=== PATIENT | male | born 1955 | race African-American/Black ===

== ENCOUNTER 2019-12-22 10:32 | Outpatient (CLI) | payer OTHER ==
--- NOTE | 2019-12-22 12:17 | MRI ---
MRI OF THE LUMBAR SPINE WITHOUT CONTRAST: INDICATION: History of left leg radiculopathy of the lumbar spine. COMPARISON: Prior MRI of the lumbar spine without contrast dated 11/24/2016 from [facility]. FINDINGS: There are bilateral renal cysts. Bone marrow signal intensity appears within normal limits. No acute fracture is evident. At L5-S1, there is a broad-based disk bulge with facet joint degenerative change. There is a small s uperimposed central disk protrusion. This stable to the prior examination. There is mild ventral ef facement of the subarachnoid space. Loss of disk space height in addition to degenerative change at this level induces mild bilateral neural foraminal narrowing which is stable. At L4-5, there is a broad-based bulge with facet hypertrophy inducing mild to moderate bilateral neur al foraminal narrowing which is stable. At L3-4, there is a broad-based bulge with facet hypertrophy inducing mild to moderate bilateral neur al foraminal narrowing which is stable. At L2-3, there is a broad-based bulge with facet hypertrophy but no appreciable central canal narrowi ng. There is mild bilateral neural foraminal narrowing which is stable. At L1-L2, there is no appreciable central canal or neural foraminal narrowing. At T12-L1, there is no appreciable central canal or neural foraminal narrowing. IMPRESSION: Stable multilevel spondylosis with multilevel neural foraminal narrowing as detailed above. POS: [facility]
== END 2019-12-22 10:33 | disposition home or self-care (01) ==
LOC: TBSIIMAG 10:32
PROVIDERS: ATTEND Neurological Surgery
DX: M47.26 Other spondylosis with radiculopathy, lumbar region (principal); M48.061 Spinal stenosis, lumbar region without neurogenic claudication
CPT/HCPCS: 72148

== ENCOUNTER 2020-06-07 08:06 | Outpatient (CLI) | payer OTHER ==
[2020-06-07 18:41] LABS: Bilirubin Neg (Negative); Blood, Urine Negative (Negative); Clarity Clear (Clear); Glucose, Urine (Dipstick) Normal (Negative); Ketone, Urine Negative (Negative); Leukocyte Negative (Negative); Nitrite Negative (Negative); Protein, Urine (Dipstick) Negative (Neg-Trace)
[2020-06-07 18:55] LABS: Anion Gap 13 mmol/L (10-20); BUN (Urea Nitrogen) 15 mg/dL (8.4-25.7); Calc. Creatinine Clearance 0 mL/min (70-130); Calcium 9.1 mg/dL (7.8-10.44); Carbon Dioxide 26 mmol/L (23-31); Chloride 106 mmol/L (98-107); Glucose 124 mg/dL (80-115); Potassium 3.8 mmol/L (3.5-5.1); Sodium 141 mmol/L (136-145)
[2020-06-07 18:59] LABS: Bacteria/HPF Rare-Few HPF (None Seen); RBC/HPF 0-3 HPF (0-3); Squamous Epithelial 0-3 HPF (0-3); WBC/HPF 0-3 HPF (0-3)
[2020-06-07 19:08] LABS: Hemoglobin 14.6 g/dL (14.0-18.0); Mean Corpuscular HGB CONC 33.2 G/DL (32.0-36.0); Mean Corpuscular Hemoglobin 30.5 PG (27.0-33.0); Mean Corpuscular Volume 91.9 fl (80.0-100.0); Mean Platelet Volume 13.9 fl (7.4-10.4); Red Blood Cell (RBC) Count 4.79 10x6/uL (4.40-5.80); White Blood Cell (WBC) Count 6.2 10x3/uL (4.5-11.0)
[2020-06-07 19:09] LABS: Platelet Count 154 10x3/uL (130-400)
[2020-06-08 02:05] LABS: SARS-CoV-2 MS2 Positive; SARS-CoV-2 N Gene Negative; SARS-CoV-2 S Gene Negative; SARS-CoV-2 by NAA Not Detected (NotDetected); SARS-CoV-2 orf1ab Negative
== END 2020-06-07 08:07 | disposition home or self-care (01) ==
LOC: LABBT 08:06
PROVIDERS: ATTEND Urology
DX: Z01.818 Encounter for other preprocedural examination (principal); Z20.828 Contact with and (suspected) exposure to other viral communicable diseases
CPT/HCPCS: 80048; 81001; 85027; 87086; 87635; 93005; 93010; U0003

== ENCOUNTER 2020-06-12 05:50 | Observation (INO) | payer OTHER ==
[2020-06-11 13:17] VITALS: BMI 34.9
[2020-06-12] MEDS ORDERED: Levofloxacin 500 mg/D5W 100 ml Premix Bag ONE (06:23)
[2020-06-12 06:36] LABS: PTT 28.6 sec (22.9-36.1); Prothrombin Time 13.3 sec (12.0-14.7)
[2020-06-12] MEDS ORDERED: Fentanyl 100 MCG/2 ML VIAL ONE ×2 (07:06→07:22)
--- NOTE | 2020-06-12 08:46 | OP ---
DATE OF PROCEDURE: 06/12/2020 PREOPERATIVE DIAGNOSIS: Enlarged prostate with lower urinary tract symptoms. POSTOPERATIVE DIAGNOSIS: Enlarged prostate with lower urinary tract symptoms. PROCEDURES PERFORMED: Transurethral resection of prostate. ANESTHESIA: General. COMPLICATIONS: None. ESTIMATED BLOOD LOSS: Minimal. SPECIMENS: Prostate chips. DESCRIPTION OF PROCEDURE: After informed consent, the patient was taken to the operating room, transferred to the table on his own power. Anesthesia was established. A time-out was performed showing the correct patient, site, and procedure. Preoperative antibiotics were administered. He was prepped and draped in the lithotomy position. The rigid resectoscope was advanced through the urethra, noting a normal course and caliber of the urethra down to the level of the prostate, noting large coapting lateral lobes and a high bladder neck. The scope was carefully guided into the bladder, noting moderate trabeculation. Both ureters were normal in appearance. The resection loop was used to take down the bladder neck at midline all the way back to the verumontanum. The left lobe was then resected from one o'clock down to midline limiting resection to the level of the verumontanum. The right lobe was then taken down from 11 o'clock down to midline. Finally, anterior obstructing tissue was resected. Meticulous hemostasis was achieved. The [employer] evacuator was used to retrieve all prostate chips. Both ureters were uninvolved with resection. The bladder was then drained and refilled, noting no further prostate chips or active bleeding. The scope was withdrawn and a 22-Spanish 3-way catheter placed with 30 mL instilled in the balloon. This was connected to CBI, which was running clear as we completed the case. He was then awoken from anesthesia, transferred back to his hospital bed and taken to PACU in stable condition, where he will be admitted overnight. Job ID: [id number]
[2020-06-12] MEDS ORDERED: PROPOFOL 200 MG/20 ML VIAL ONE (09:32)
[2020-06-12] MEDS ORDERED: Lidocaine 1% PF 5 ML VIAL ONE (09:32)
[2020-06-12] MEDS ORDERED: Dexamethasone 20 MG/5 ML VIAL ONE (09:32)
[2020-06-12] MEDS ORDERED: Ondansetron PF 4 MG/2 ML Vial ONE (09:32)
[2020-06-12] MEDS ORDERED: Zolpidem Tartrate 5 MG TAB PO PRN (10:03)
[2020-06-12] MEDS ORDERED: Ondansetron PF 4 MG/2 ML Vial IVP PRN (10:03)
[2020-06-12] MEDS ORDERED: diphenhydrAMINE 50 MG/ML VIAL IVP PRN (10:03)
[2020-06-12] MEDS ORDERED: hydrALAZINE 20 MG/ML VIAL SLOW IVP PRN (10:03)
[2020-06-12] MEDS ORDERED: Docusate 100 MG CAP PO SCH (10:30)
[2020-06-12] MEDS ORDERED: Aspirin 81 mg Enteric Coated Tablet PO SCH (10:30)
[2020-06-12] MEDS: Sodium Chloride 0.9% 1,000 ML IV SCH ×2 (11:17→20:41)
[2020-06-12] MEDS: HYDROcodone/Acetaminophen 5/325 mg Tablet PO PRN (11:20)
[2020-06-12] MEDS: Hyoscyamine Sulfate SL 0.125 mg Tablet SL PRN (11:23)
[2020-06-12] MEDS: Docusate 100 MG CAP PO SCH (20:40)
[2020-06-12] MEDS ORDERED: Atorvastatin Calcium 20 MG TAB PO SCH (21:00)
[2020-06-13 04:48] VITALS: BP 129/76; TEMP 97.8
[2020-06-13] MEDS: Sodium Chloride 0.9% 1,000 ML IV SCH (08:36)
[2020-06-13] MEDS: Hyoscyamine Sulfate SL 0.125 mg Tablet SL PRN (08:36)
[2020-06-13] MEDS: Docusate 100 MG CAP PO SCH (08:36)
[2020-06-13] MEDS: HYDROcodone/Acetaminophen 5/325 mg Tablet PO PRN (08:37)
[2020-06-13] MEDS ORDERED: Aspirin 81 mg Enteric Coated Tablet PO SCH (09:00)
[2020-06-13] MEDS ORDERED: FLU VACC QS2020-21(6MOS UP)/PF 60 MCG/0.5 ML SYRINGE IM ONE (09:00)
--- NOTE | 2020-06-13 10:05 | DIS ---
DATE OF ADMISSION: 06/12/2020 DATE OF DISCHARGE: 06/13/2020 DISCHARGE DIAGNOSIS: Lower urinary tract symptoms due to enlarged prostate. HOSPITAL COURSE: The patient underwent an uncomplicated bipolar transurethral resection of the prostate on 06/12. He was maintained with CBI overnight. The following morning, this was turned off and remained clear without CBI. He was deemed stable for discharge home at that point. DISCHARGE MEDICATIONS: Resume home medications. Postop medications include, 1. Bactrim. 2. Tramadol. 3. Oxybutynin. DISCHARGE PLAN: Follow up next Thursday for void trial. DISCHARGE PHYSICAL EXAMINATION: GENERAL: No acute distress. LUNGS: Unlabored breathing. HEART: Regular rate and rhythm. ABDOMEN: Soft, nontender, and nondistended. No CVA tenderness. No suprapubic tenderness. Weiss catheter in good position draining clear urine off CBI. SKIN: Warm and dry. EXTREMITIES: No peripheral edema. Job ID: [id number]
== END 2020-06-13 11:00 | disposition home or self-care (01) ==
LOC: SDC 05:50 → SURG A 07:25 → SDC 10:03 → SURG A 10:03
PROVIDERS: ADMIT Urology; ATTEND Urology
PROC: 0V507ZZ Destruction of Prostate, Via Natural or Artificial Opening (ICD-10-PCS; principal; 2020-06-12)
DX: N40.1 Benign prostatic hyperplasia with lower urinary tract symptoms (principal); Z79.82 Long term (current) use of aspirin; Z79.899 Other long term (current) drug therapy
CPT/HCPCS: 36415; 85610; 85730; 88305; 90471; 90662; 90732; G0008; G0009; G0378; J1100; J1956; J2405; J2704; J3010

== ENCOUNTER 2020-12-18 18:30 | Outpatient (CLI) | payer OTHER | END 2020-12-18 18:31 | disposition home or self-care (01) | LOC: SLEEPLAB 18:30 | PROVIDERS: ATTEND Family Medicine Sports Medicine | DX: G47.33 Obstructive sleep apnea (adult) (pediatric) (principal); G47.31 Primary central sleep apnea; R53.83 Other fatigue; E66.9 Obesity, unspecified; E11.9 Type 2 diabetes mellitus without complications | CPT/HCPCS: 95806 ==

== ENCOUNTER 2021-04-01 19:00 | Outpatient (CLI) | payer OTHER | END 2021-04-01 19:01 | disposition home or self-care (01) | LOC: SLEEPLAB 19:00 | PROVIDERS: ATTEND Family Medicine Sports Medicine | DX: G47.33 Obstructive sleep apnea (adult) (pediatric) (principal); R53.83 Other fatigue; E66.9 Obesity, unspecified; E11.9 Type 2 diabetes mellitus without complications; G47.31 Primary central sleep apnea | CPT/HCPCS: 95811 ==

== ENCOUNTER 2022-08-27 10:57 | Emergency (ER) | payer OTHER ==
[2022-08-27] MEDS ORDERED: Ibuprofen 200 MG TAB ONE (11:40)
== END 2022-08-27 12:05 | disposition home or self-care (01) ==
LOC: ERS 10:57
DX: M25.531 Pain in right wrist (principal); Z87.891 Personal history of nicotine dependence

== ENCOUNTER 2022-10-24 17:29 | Outpatient (CLI) | payer OTHER ==
[2022-10-24 18:18] LABS: #Eosinphils 0.1 10x3/uL (0.0-0.5); #Monocytes 0.4 10x3/uL (0.0-1.1); %Basophils 0.5 % (0.0-2.0); %Eosinophils 1.8 % (0.0-6.0); %Lymphocytes 37.2 % (18.0-47.0); %Monocytes 7.8 % (0.0-10.0); %Neutrophils 52.5 % (40.0-75.0); Anion Gap 14 mmol/L (10-20); BUN (Urea Nitrogen) 15 mg/dL (8.4-25.7); Calc. Creatinine Clearance 0 mL/min (70-130); Calcium 8.8 mg/dL (7.8-10.44); Carbon Dioxide 25 mmol/L (23-31); Chloride 105 mmol/L (98-107); Estimated GFR 63; Glucose 152 mg/dL (80-115); Hemoglobin 14.1 g/dL (13.5-17.5); Mean Corpuscular HGB CONC 33.3 g/dL (32.0-36.0); Mean Corpuscular Hemoglobin 30.4 pg (27.0-33.0); Mean Corpuscular Volume 91.4 fl (81.2-95.1); Mean Platelet Volume 12.2 fl (7.4-10.4); Platelet Count 167 10x3/uL (150-450); Potassium 3.5 mmol/L (3.5-5.1); Red Blood Cell (RBC) Count 4.64 10x6/uL (4.32-5.72); Sodium 140 mmol/L (136-145); White Blood Cell (WBC) Count 5.6 10x3/uL (3.5-10.5)
== END 2022-10-24 17:30 | disposition home or self-care (01) ==
LOC: LABBT 17:29
PROVIDERS: ATTEND Specialist
DX: Z01.818 Encounter for other preprocedural examination (principal); K42.9 Umbilical hernia without obstruction or gangrene
CPT/HCPCS: 71046; 80048; 85025

== ENCOUNTER 2022-10-28 06:47 | Day surgery (SDC) | payer OTHER ==
[2022-10-24 17:44] VITALS: BMI 34.7
[2022-10-28] MEDS ORDERED: Ketorolac Tromethamine 30 MG/ML VIAL ONE (07:30)
[2022-10-28] MEDS ORDERED: Acetaminophen 500 MG TAB ONE (07:31)
[2022-10-28] MEDS ORDERED: Bupivacaine/Epinephrine 0.25% 30 ML VIAL ONE (12:08)
[2022-10-28] MEDS ORDERED: fentaNYL PF 100 MCG/2 ML SYRINGE ONE (12:17)
[2022-10-28] MEDS ORDERED: CEFAZOLIN 2 GM VIAL ONE (12:22)
[2022-10-28] MEDS ORDERED: Sodium Chloride 0.9% 100 ML ONE (12:22)
[2022-10-28] MEDS ORDERED: Ondansetron PF 4 MG/2 ML Vial ONE (12:36)
[2022-10-28] MEDS ORDERED: Rocuronium Bromide 10 MG/ML (10ML VIAL) ONE (12:36)
[2022-10-28] MEDS ORDERED: Lidocaine 1% PF 5 ML VIAL ONE (12:36)
[2022-10-28] MEDS ORDERED: NEOSTIGMINE 3 MG/3 ML SYR 3 MG/3 ML SYRINGE ONE (12:36)
[2022-10-28] MEDS ORDERED: Glycopyrrolate 0.2 MG/ML 5 ML SYRINGE ONE (12:36)
[2022-10-28] MEDS ORDERED: PROPOFOL 200 MG/20 ML VIAL ONE (12:36)
== END 2022-10-28 15:09 | disposition home or self-care (01) ==
LOC: SDC 06:47
PROVIDERS: ATTEND Specialist
PROC: 0WUF0JZ Supplement Abdominal Wall with Synthetic Substitute, Open Approach (ICD-10-PCS; principal; 2022-10-28)
DX: K42.9 Umbilical hernia without obstruction or gangrene (principal); M17.9 Osteoarthritis of knee, unspecified; E55.9 Vitamin D deficiency, unspecified; Z87.891 Personal history of nicotine dependence; Z79.82 Long term (current) use of aspirin; Z79.899 Other long term (current) drug therapy; Z88.8 Allergy status to other drugs, medicaments and biological substances
CPT/HCPCS: 93005; 93010; C1889; J1885; J2405; J2704; J3490